=== PATIENT | male | born 1950 | race African-American/Black ===

== ENCOUNTER 2021-04-09 09:35 | Inpatient (IN) | payer MEDICARE, MEDICAID ==
[~2021-04-09] VITALS: Ht 182.9 cm; Wt 73.1 kg
[2021-04-09 10:13] LABS: BASOPHILS % 0.7 % (0.0-2.0); EOSINOPHILS % 7.2 % (0.0-5.0); HEMATOCRIT. 33.8 % (42.0-52.0); HEMOGLOBIN. 11.4 g/dL (14.0-18.0); LYMPHOCYTES % 23.1 % (20.0-50.0); MEAN CORPUSCULAR HEMOGLOBIN 30.5 pg (28.0-32.0); MEAN PLATELET VOLUME 7.7 fl (7.4-10.4); MONOCYTES % 6.6 % (2.0-8.0); NEUTROPHILS % 62.4 % (40.0-76.0); PLATELET 258 x1000/uL (130-400); RED BLOOD CELL COUNT 3.72 mill/uL (4.7-6.1); RED CELL DISTRIBUTION WIDTH 13.8 % (11.6-14.6)
[2021-04-09 10:19] LABS: CHLORIDE 113 mEq/L (98-107)
[2021-04-09] MEDS ORDERED: ASPIRIN 81MG TABLET PO ONE (11:30)
[2021-04-09] MEDS ORDERED: SODIUM CHLORIDE 0.9% 500 ML IV ONE (11:30)
[2021-04-09 12:58] LABS: CLARITY URINE TURBID (CLEAR); COLOR URINE YELLOW (YELLOW); KETONES URINE NEGATIVE (NEGATIVE); LEUKOCYTE ESTERASE URINE 3+ (NEGATIVE); NITRITE URINE POSITIVE (NEGATIVE); OCCULT BLOOD URINE 1+ (NEGATIVE); PROTEIN URINE TRACE (NEGATIVE); SPECIFIC GRAVITY URINE 1.008 (1.005-1.030); UROBILINOGEN URINE 0.2 E.U./dL (0.2-1.0)
[2021-04-09 16:23] VITALS: BP 102/75
[2021-04-09 16:43] VITALS: BP 117/77
[2021-04-09] MEDS ORDERED: LORAZEPAM 0.5MG TABLET PO PRN (16:45)
[2021-04-09] MEDS ORDERED: NITROGLYCERIN 0.4MG TABLET SL SL PRN (16:45)
[2021-04-09] MEDS ORDERED: HYDROCODONE/ACETAMINOPHEN 5/325MG TABLET PO PRN (16:45)
[2021-04-09] MEDS ORDERED: NALOXONE HCL 0.4MG/ML VIAL IV PRN (16:45)
[2021-04-09] MEDS ORDERED: ACETAMINOPHEN 325MG TABLET PO PRN ×2 (16:45)
[2021-04-09] MEDS ORDERED: ONDANSETRON HCL 4MG/2ML INJ IV PRN (16:45)
[2021-04-09] MEDS ORDERED: DOCUSATE SODIUM 100MG CAPSULE PO PRN (16:45)
[2021-04-09] MEDS ORDERED: IPRATROPIUM/ALBUTEROL 0.5-3(2.5)MG/3ML NEB HHN PRN (16:45)
[2021-04-09] MEDS ORDERED: CLONIDINE 0.1MG TABLET PO PRN (16:45)
[2021-04-09 17:01] VITALS: BP 117/77
[2021-04-09 18:23] VITALS: BP 110/74
[2021-04-09] MEDS ORDERED: TRAZ-251 PO (18:27)
[2021-04-09] MEDS ORDERED: BUPR-46 PO (18:27)
[2021-04-09] MEDS ORDERED: NICO-786 (18:27)
[2021-04-09] MEDS ORDERED: HYDR50TA54 PO (18:27)
[2021-04-09] MEDS ORDERED: METO-396 PO (18:27)
[2021-04-09] MEDS ORDERED: FINA5TAB11 PO (18:27)
[2021-04-09] MEDS ORDERED: TICA90TA PO (18:27)
[2021-04-09] MEDS ORDERED: QUET300T19 PO (18:27)
[2021-04-09] MEDS ORDERED: UMEC62.5 IH (18:27)
[2021-04-09] MEDS ORDERED: COLC0.6C3 PO (18:27)
[2021-04-09] MEDS ORDERED: ASPI-1160 PO (18:27)
[2021-04-09 19:49] LABS: *BARBITURATES SCREEN URINE NEGATIVE (NEGATIVE); *COCAINE SCREEN URINE NEGATIVE (NEGATIVE); PHENCYCLIDINE URINE SCREEN NEGATIVE (NEGATIVE)
[2021-04-09 19:50] LABS: *AMPHETAMINES SCREEN URINE NEGATIVE (NEGATIVE); *BENZODIAZEPINES SCREEN URINE NEGATIVE (NEGATIVE); CANNABINOID URINE SCREEN NEGATIVE (NEGATIVE); METHADONE URINE SCREEN NEGATIVE (NEGATIVE); OPIATES URINE SCREEN NEGATIVE (NEGATIVE)
[2021-04-09 20:03] VITALS: BP 110/71
[2021-04-09 21:04] LABS: PHOSPHORUS 3.5 mg/dL (2.5-4.9)
[2021-04-09 22:00] VITALS: BP 94/44
[2021-04-09] MEDS: ENOXAPARIN 40MG/0.4ML SYR SUBCUT SCH (22:56)
[2021-04-10] VITALS (12 sets, daily range): BP systolic 95–153; BP diastolic 35–74
[2021-04-10] MEDS ORDERED: BUPROPION HCL 100MG SR TABLET PO SCH (09:00)
[2021-04-10] MEDS: FINASTERIDE 5MG TABLET PO SCH (09:24)
[2021-04-10] MEDS: ASPIRIN 81MG TABLET PO SCH (09:25)
[2021-04-10] MEDS: BUPROPION HCL 150MG TABLET XL 24HR PO SCH (09:25)
[2021-04-10] MEDS: TICAGRELOR 90 MG TABLET PO SCH ×2 (09:25→16:17)
[2021-04-10 10:10] LABS: CLARITY URINE TURBID (CLEAR); COLOR URINE YELLOW (YELLOW); KETONES URINE NEGATIVE (NEGATIVE); LEUKOCYTE ESTERASE URINE 3+ (NEGATIVE); NITRITE URINE POSITIVE (NEGATIVE); OCCULT BLOOD URINE 2+ (NEGATIVE); PH URINE 5.5 (4.5-8.0); PROTEIN URINE 2+ (NEGATIVE); SPECIFIC GRAVITY URINE 1.013 (1.005-1.030); UROBILINOGEN URINE 0.2 E.U./dL (0.2-1.0)
[2021-04-10] MEDS ORDERED: CEFTRIAXONE 1 G PREMIX 50 ML IV SCH (10:45)
[2021-04-10] MEDS: CEFTRIAXONE 1,000 MG in DEXTROSE 5% WATER 50 ML IV SCH (12:23)
[2021-04-10] MEDS: DOCUSATE SODIUM 100MG CAPSULE PO SCH (16:17)
[2021-04-10] MEDS ORDERED: QUETIAPINE FUMARATE 50MG TABLET PO SCH (21:00)
[2021-04-10] MEDS: ENOXAPARIN 40MG/0.4ML SYR SUBCUT SCH (21:00)
[2021-04-10] MEDS: TRAZODONE HCL 50MG TABLET PO SCH (21:12)
[2021-04-10] MEDS: QUETIAPINE FUMARATE 50MG TABLET PO SCH (21:57)
[2021-04-11] VITALS (11 sets, daily range): BP systolic 92–128; BP diastolic 48–77
[2021-04-11 06:27] LABS: CHLORIDE 109 mEq/L (98-107)
[2021-04-11 06:33] LABS: TOTAL IRON BINDING CAPACITY 185 ug/dL (250-450)
[2021-04-11 06:34] LABS: BASOPHILS % 0.4 % (0.0-2.0); EOSINOPHILS % 9.6 % (0.0-5.0); HEMOGLOBIN. 11.6 g/dL (14.0-18.0); LYMPHOCYTES % 28.3 % (20.0-50.0); MEAN CORPUSCULAR HEMOGLOBIN 30.2 pg (28.0-32.0); MEAN CORPUSCULAR VOLUME 91.2 fL (80.0-94.0); MEAN PLATELET VOLUME 7.9 fl (7.4-10.4); NEUTROPHILS % 49.7 % (40.0-76.0); PLATELET 255 x1000/uL (130-400); RED BLOOD CELL COUNT 3.84 mill/uL (4.7-6.1); RED CELL DISTRIBUTION WIDTH 13.8 % (11.6-14.6)
[2021-04-11 06:48] LABS: FERRITIN 458 ng/mL (22-322)
[2021-04-11 06:58] LABS: VITAMIN B12 SERUM 474 pg/mL (211-911)
[2021-04-11] MEDS: FINASTERIDE 5MG TABLET PO SCH (08:16)
[2021-04-11] MEDS: TICAGRELOR 90 MG TABLET PO SCH ×2 (08:16→17:36)
[2021-04-11] MEDS: ASPIRIN 81MG TABLET PO SCH (08:16)
[2021-04-11] MEDS: DOCUSATE SODIUM 100MG CAPSULE PO SCH ×2 (08:16→17:36)
[2021-04-11] MEDS: BUPROPION HCL 150MG TABLET XL 24HR PO SCH (08:30)
[2021-04-11] MEDS: CEFTRIAXONE 1,000 MG in DEXTROSE 5% WATER 50 ML IV SCH (12:10)
[2021-04-11] MEDS: QUETIAPINE FUMARATE 50MG TABLET PO SCH (21:06)
[2021-04-11] MEDS: TRAZODONE HCL 50MG TABLET PO SCH (21:06)
[2021-04-12] VITALS (13 sets, daily range): BP systolic 95–141; BP diastolic 56–95
[2021-04-12 06:35] LABS: BASOPHILS % 0.4 % (0.0-2.0); EOSINOPHILS % 9.4 % (0.0-5.0); HEMATOCRIT. 34.9 % (42.0-52.0); HEMOGLOBIN. 11.6 g/dL (14.0-18.0); LYMPHOCYTES % 29.3 % (20.0-50.0); MEAN CORPUSCULAR HEMOGLOBIN 30.5 pg (28.0-32.0); MEAN CORPUSCULAR VOLUME 91.6 fL (80.0-94.0); MEAN PLATELET VOLUME 8.3 fl (7.4-10.4); MONOCYTES % 10.8 % (2.0-8.0); NEUTROPHILS % 50.1 % (40.0-76.0); PLATELET 248 x1000/uL (130-400); RED CELL DISTRIBUTION WIDTH 13.9 % (11.6-14.6)
[2021-04-12 06:57] LABS: CHLORIDE 107 mEq/L (98-107)
[2021-04-12 07:19] LABS: FOLIC ACID (FOLATE) SERUM 7.1 ng/mL (>5.38)
[2021-04-12] MEDS: POLYETHYLENE GLYCOL 3350 (17GM) 1 DOSE PACK PO SCH (08:40)
[2021-04-12] MEDS: BUPROPION HCL 150MG TABLET XL 24HR PO SCH (08:40)
[2021-04-12] MEDS: DOCUSATE SODIUM 100MG CAPSULE PO SCH ×2 (08:41→17:45)
[2021-04-12] MEDS: ASPIRIN 81MG TABLET PO SCH (08:41)
[2021-04-12] MEDS: FINASTERIDE 5MG TABLET PO SCH (08:41)
[2021-04-12] MEDS: TICAGRELOR 90 MG TABLET PO SCH ×2 (08:41→17:45)
[2021-04-12] MEDS: CEFTRIAXONE 1,000 MG in DEXTROSE 5% WATER 50 ML IV SCH (13:28)
[2021-04-12] MEDS: TRAZODONE HCL 50MG TABLET PO SCH (21:06)
[2021-04-12] MEDS: QUETIAPINE FUMARATE 50MG TABLET PO SCH (21:06)
[2021-04-13] VITALS (7 sets, daily range): BP systolic 102–129; BP diastolic 32–91
[2021-04-13 05:47] LABS: CHLORIDE 106 mEq/L (98-107)
[2021-04-13 06:10] LABS: BASOPHILS % 0.7 % (0.0-2.0); EOSINOPHILS % 13.2 % (0.0-5.0); HEMATOCRIT. 34.3 % (42.0-52.0); HEMOGLOBIN. 11.3 g/dL (14.0-18.0); MEAN CORPUSCULAR HEMOGLOBIN 29.7 pg (28.0-32.0); MEAN CORPUSCULAR VOLUME 90.7 fL (80.0-94.0); MEAN PLATELET VOLUME 8.2 fl (7.4-10.4); MONOCYTES % 10.9 % (2.0-8.0); NEUTROPHILS % 41.2 % (40.0-76.0); PLATELET 245 x1000/uL (130-400); RED BLOOD CELL COUNT 3.78 mill/uL (4.7-6.1); RED CELL DISTRIBUTION WIDTH 13.8 % (11.6-14.6)
[2021-04-13] MEDS: BUPROPION HCL 150MG TABLET XL 24HR PO SCH (09:23)
[2021-04-13] MEDS: POLYETHYLENE GLYCOL 3350 (17GM) 1 DOSE PACK PO SCH (09:23)
[2021-04-13] MEDS: DOCUSATE SODIUM 100MG CAPSULE PO SCH (09:23)
[2021-04-13] MEDS: ASPIRIN 81MG TABLET PO SCH (09:24)
[2021-04-13] MEDS: FINASTERIDE 5MG TABLET PO SCH (09:24)
[2021-04-13] MEDS: TICAGRELOR 90 MG TABLET PO SCH (09:24)
[2021-04-13] MEDS ORDERED: TICA90TA PO (10:10)
== END 2021-04-13 12:17 | disposition home health service (06) | DRG 253 ==
LOC: EDBD 09:40 → ER 09:40 → ENRESERV 14:46 → 3WST 17:02
PROVIDERS: ADMIT Internal Medicine; ATTEND Internal Medicine
DX: K92.2 Gastrointestinal hemorrhage, unspecified (principal); D72.10 Eosinophilia, unspecified; N39.0 Urinary tract infection, site not specified; D64.9 Anemia, unspecified; F17.210 Nicotine dependence, cigarettes, uncomplicated; F20.9 Schizophrenia, unspecified; I25.10 Atherosclerotic heart disease of native coronary artery without angina pectoris; I49.3 Ventricular premature depolarization; J44.9 Chronic obstructive pulmonary disease, unspecified; K59.09 Other constipation; K64.4 Residual hemorrhoidal skin tags; N40.0 Benign prostatic hyperplasia without lower urinary tract symptoms; I10 Essential (primary) hypertension; R07.89 Other chest pain; I25.5 Ischemic cardiomyopathy; Z79.82 Long term (current) use of aspirin; Z82.49 Family history of ischemic heart disease and other diseases of the circulatory system; I25.2 Old myocardial infarction; Z95.5 Presence of coronary angioplasty implant and graft; Z79.899 Other long term (current) drug therapy
CPT/HCPCS: 36415; 71045; 78582; 80048; 80053; 80305; 81003; 82270; 82607; 82728; 82746; 82962; 83036; 83540; 83550; 83735; 83880; 84100; 84443; 84484; 85025; 85044; 85379; 87077; 87186; 93005; 93306; 97162; 97166; 99285; A9558; J0696; J1650; J7040; J7060; J8499